=== PATIENT | male | born 1980 ===

== ENCOUNTER 2023-06-14 05:18 | Day surgery (SDC) | payer OTHER ==
[2023-06-07 14:20] LABS: URINE APPEARANCE Clear; URINE BILIRRUBIN Negative (NEGATIVE); URINE BLOOD Trace; URINE COLOR Yellow; URINE GLUCOSE Negative (NEGATIVE); URINE LEUKOCYTE Negative; URINE NITRATE Negative; URINE PROTEIN Trace (NEGATIVE)
[2023-06-07 14:21] LABS: HEMOGLOBIN 15.7 g/dL (13-16.00); MEAN CELL VOLUME 95.3 fL (80.0-100.00); MEAN CORPUSCULAR HEMOGLOBIN 33.3 pg (27.00-32.0); MEAN CORPUSCULAR HGB CONC 34.9 g/dl (32.0-36.0); PLATELET COUNT 232 K/uL (150-450); RED BLOOD COUNT 4.72 M/uL (4.00-6.00); RED CELL DISTRIBUTION WIDTH 12.8 % (11.5-14.5)
[2023-06-07 14:23] LABS: URINE EPITHELIAL CELLS 3.2 uL (0.0-38.8); URINE RBC 10.7 uL (0.0-20.8); URINE WBC 4.1 uL (0.0-23.2)
[2023-06-07 14:41] LABS: INR 0.98; PARTIAL THROMBOPLASTIN TIME 28.5 SECONDS (22.0-34.0)
[2023-06-07 14:49] LABS: PROTHROMBIN TIME 10.3 SECONDS (9.0-11.5)
[2023-06-07 15:03] LABS: BILIRUBIN TOTAL 0.54 mg/dL (0.3-1.2); CALCIUM 9.4 mg/dL (8.5-10.1); CREATININE SERUM 0.78 mg/dL (0.70-1.30); GFR 108.13; GLOBULINA 3.3 G/DL (2.4-3.5); POTASSIUM 4.27 mEq/L (3.5-5.1); TOTAL PROTEIN 7.3 gm/dL (6.4-8.2)
[2023-06-14] MEDS ORDERED: POVIDONE-IODINE 118 ML BOTT TOP ONE ×2 (07:00→08:15)
[2023-06-14] MEDS ORDERED: DIBUCAINE 15 GM OINT..GM. TUBE ONE (07:00)
[2023-06-14] MEDS ORDERED: CEFTRIAXONE SODIUM 2,000 MG VIAL ONE (07:00)
[2023-06-14] MEDS ORDERED: HEMOSTATIC MATRIX 1 KIT KIT TOP ONE ×2 (07:00→08:15)
[2023-06-14] MEDS ORDERED: METRONIDAZOLE/SODIUM CHLORIDE 500 MG/100 ML PIGGYBACK IV ONE (07:00)
[2023-06-14] MEDS ORDERED: LIDOCAINE HCL/EPINEPHRINE 1% 50ML VIAL IJ ONE ×2 (07:33→08:15)
[2023-06-14] MEDS ORDERED: METRONIDAZOLE/SODIUM CHLORIDE 500 MG/100 ML PIGGYBACK IV SCH (08:00)
[2023-06-14] MEDS ORDERED: BUPIVACAINE HCL 30 ML VIAL IV ONE (08:00)
[2023-06-14] MEDS ORDERED: CEFTRIAXONE SODIUM 2,000 MG VIAL IV SCH (08:00)
[2023-06-14] MEDS ORDERED: DIBUCAINE 30 GM TUBE RECTAL ONE (08:15)
[2023-06-14] MEDS ORDERED: PERCOCET 5-3251 EACH PO (08:49)
[2023-06-14] MEDS ORDERED: RECTICARE30 GM TOP (08:49)
[2023-06-14] MEDS ORDERED: MORPHINE SULFATE 4 MG/ML VIAL IV ONE (14:00)
== END 2023-06-14 17:15 | disposition home or self-care (01) ==
LOC: CIR.AMB 05:18
PROVIDERS: ATTEND Surgery
DX: K64.2 Third degree hemorrhoids (principal); K64.4 Residual hemorrhoidal skin tags; K64.8 Other hemorrhoids